=== PATIENT | female | born 1995 | race Hispanic/Latino ===

== ENCOUNTER 2021-05-29 18:56 | Emergency (ER) | payer OTHER, SELFPAY ==
[2021-05-29 19:12] VITALS: BP 101/76; PULSE 95; RESP 16; TEMP 36.6; O2SAT 100
--- NOTE | 2021-05-29 19:24 | ED.FEMALEGU ---
HPI - Female Genitourinary General Chief complaint: Urogenital-Female Stated complaint: abdominal pain/back pain Time Seen by Provider: 05/29/21 19:24 Source: patient and RN notes reviewed Mode of arrival: ambulatory Limitations: no limitations History of Present Illness HPI Narrative: 25-year-old female presents to the [facility] with complaints of urinary burning, left flank lower pain since this morning. Denies any nausea vomiting or diarrhea. Unsure of status. Related Data Allergies Allergy/AdvReac Type Severity Reaction Status Date / Time No Known Allergies Allergy Verified 05/29/21 19:23 Review of Systems Review of Systems: All systems reviewed & are unremarkable except as noted in HPI and below Constitutional: Constitutional: Reports no additional constitutional complaints, Denies chills and Denies fatigue Eyes: Eyes: Reports no additional eye complaints ENT: Reports system reviewed and no additional complaints, except as documented Cardiovascular: Cardiovascular: Reports no additional cardiovascular complaints and Denies chest pain Respiratory: Respiratory: Reports no additional respiratory complaints, Denies cough and Denies dyspnea Gastrointestinal: Gastrointestinal: Reports no additional gastrointestinal complaints, Denies abdominal pain, Denies nausea and Denies vomiting Genitourinary: Genitourinary: Reports as per HPI, Reports dysuria, Reports flank pain (left ) and Denies vaginal discharge Musculoskeletal: Musculoskeletal: Reports no additional musculoskeletal complaints Integumentary/Breasts: Skin/Breast: Reports system reviewed and no additional complaints, except as docu Neurologic: Reports system reviewed and no additional complaints, except as documented Allergic/Immunologic: Allergic/Immunologic: Reports no additional allergic/immunologic complaints PMFSH Past Medical History Medical History (Updated 05/29/21 @ 19:35 by Gia Johnson) History of PCOS Surgical History Surgical History (Updated 05/29/21 @ 19:35 by Gia Johnson) No significant past surgical history Social History Social History (Updated 05/29/21 @ 19:35 by Gia Johnson) Living arrangements: with family Gender identity (if verbalized by the patient): Female Comments At the time of my signature, I reviewed and agree with the nursing past medical, surgical, social, and family history. There is no relevant family history pertinent to the patient complaint. Exam Const: General: healthy appearing, no acute distress and alert Nutritional Appearance: well nourished Orientation/consciousness: patient oriented x3 Limitations: no limitations HENMT: Head: normal to inspection Eyes: Pupils: Equal, round and reactive pupils present Neck: Neck: normal visual inspection, no lymphadenopathy and no meningeal signs Chest: Chest palpation & inspection: normal inspection of the chest Resp: Effort & Inspection: normal respiratory effort Cardio: Rate: regular rate Rhythm: regular rhythm GI: GI Palp: Yes Soft to palpation and No Tenderness to palpation present (GI) : General: Yes CVA tenderness on the left (Lower aspect) Skin: General skin exam: normal color Rashes: no rashes Wounds: no wounds Neuro: General: patient oriented x3, moves all extremities, no meningeal signs and no focal motor deficits Speech: normal speech Gait exam (Neuro): Normal gait present Extrem: General: normal to inspection Psych: Mental Status: mental status grossly normal Affect: normal affect Attitude: cooperative Thought content: Yes Normal thought content present Judgement: Good judgement present (Psych) Course Course Emergency Course: Discharge instructions reviewed with patient, as well as provided in writing per nursing staff. The instructions also include specific and strict return/GO TO THE ER as well as f/u information. All questions have been answered, and the patient deny any further questions with discha
== END 2021-05-29 19:37 | disposition home or self-care (01) ==
PROVIDERS: Emergency Provider Nurse Practitioner; PCP Registered Nurse
DX: N30.01 Acute cystitis with hematuria (principal); E28.2 Polycystic ovarian syndrome
CPT/HCPCS: 81003; 81025; 87077; 87086; 87088; 99213; G0463

== ENCOUNTER 2021-09-14 12:43 | Emergency (ER) | payer OTHER, SELFPAY ==
[2021-09-14 12:51] VITALS: BP 134/70; PULSE 96; RESP 16; TEMP 37.2; O2SAT 99
--- NOTE | 2021-09-14 13:12 | ED.GENADULT ---
HPI - General Adult General Chief complaint: Back Pain/Injury Stated complaint: lower back pain Source: patient and RN notes reviewed History of Present Illness HPI narrative: This is a 26-year-old female that took a test Sunday 3 times and notes that are 3 times a test is positive. Patient notes that she started experiencing pelvic pain yesterday along with lower back pain. Patient is concerned of a miscarriage due to her diagnosis of PCOS. This is not patient's first and she has never experienced any pain like this before. She did note that she is seeing spots of blood this morning. The patient denies SOB, CP, palpitation, extremity numbness, lightheadedness, dizziness, constipation, diarrhea, chills, or fever. Related Data Allergies Allergy/AdvReac Type Severity Reaction Status Date / Time No Known Allergies Allergy Verified 09/14/21 12:46 Review of Systems Review of Systems: A 14 organ system Review of Systems was performed and pertinent positives included in the HPI, otherwise remaining ROS is negative. FOR[facility]LY [facility] Past Medical History Medical History History of PCOS Surgical History Surgical History No significant past surgical history Social History Social History Gender identity (if verbalized by the patient): Female Exam Narrative: GENERAL: This is a well-nourished, well-developed patient, in no apparent distress. HEAD: normocephalic, atraumatic. EYES: PERRL. Sclera clear/white. Vision is grossly intact. EARS: External ears normal, auditory canals clear and without drainage, TMs normal without perforation. Hearing grossly intact. NOSE: External nose normal with no obvious nasal discharge, nares without redness, no rhinorrhea. THROAT: Mucous membranes moist, posterior pharynx clear. NECK: Neck supple, non-tender without lymphadenopathy, masses or thyromegaly. CARDIOVASCULAR: Regular rate and rhythm without murmurs, gallops, or rubs. RESPIRATORY: Clear to auscultation. Breath sounds equal bilaterally. No wheezes, rales, or rhonchi. GASTROINTESTINAL: Abdomen soft, and tender to pelvic area, nondistended. Bowel sounds are active. No hepato-splenomegaly, or palpable masses. No guarding. SKIN: warm, intact with no suspicious lesions or rash, good texture and turgor. NEURO: awake, alert, and oriented to person, place and time. There were no obvious focal neurologic abnormalities. Steady gait EXTREMITIES: Normal range of motion. No edema. No calf tenderness. Negative Homans sign bilaterally. BACK: Nontender without deformity or crepitance. No flank tenderness. Course Course Emergency Course: Patient will transfer to [facility] for further diagnostic testing Level of Care: Express Care Visit Vital Signs Vital signs: Vital Signs Temperature 99.0 F 09/14/21 12:51 Pulse Rate 96 09/14/21 12:51 Respiratory Rate 16 09/14/21 12:51 Blood Pressure 134/70 09/14/21 12:51 Pulse Oximetry 99 09/14/21 12:51 Temperature 99.0 F 09/14/21 12:51 Pulse Rate 96 09/14/21 12:51 Respiratory Rate 16 09/14/21 12:51 Blood Pressure 134/70 09/14/21 12:51 Pulse Oximetry 99 09/14/21 12:51 Medical Decision Making Differential Diagnosis Differential Diagnosis: Miscarriage versus PID Vital Signs Vital Signs: Vital Signs Temperature 99.0 F 09/14/21 12:51 Pulse Rate 96 09/14/21 12:51 Respiratory Rate 16 09/14/21 12:51 Blood Pressure 134/70 09/14/21 12:51 Pulse Oximetry 99 09/14/21 12:51 Temperature 99.0 F 09/14/21 12:51 Pulse Rate 96 09/14/21 12:51 Respiratory Rate 16 09/14/21 12:51 Blood Pressure 134/70 09/14/21 12:51 Pulse Oximetry 99 09/14/21 12:51 Lab Data Labs: Urine Glucose Negative Refere
--- NOTE | 2021-09-14 13:18 | ER_ITS ---
This report was recreated on October 13, 2021. Original report was signed by Ananth Beck APN on September 14, 2021 at 1350. HPI - General Adult General Chief complaint: Back Pain/Injury Stated complaint: lower back pain Source: patient and RN notes reviewed History of Present Illness HPI narrative: This is a 26-year-old female that took a test Sunday 3 times and notes that are 3 times a test is positive. Patient notes that she started experiencing pelvic pain yesterday along with lower back pain. Patient is concerned of a miscarriage due to her diagnosis of PCOS. This is not patient's first and she has never experienced any pain like this before. She did note that she is seeing spots of blood this morning. The patient denies SOB, CP, palpitation, extremity numbness, lightheadedness, dizziness, constipation, diarrhea, chills, or fever. Related Data Allergies Allergy/AdvReac Type Severity Reaction Status Date / Time No Known Allergies Allergy Verified 09/14/21 12:46 Review of Systems Review of Systems: A 14 organ system Review of Systems was performed and pertinent positives included in the HPI, otherwise remaining ROS is negative. FORMERLY [facility] Past Medical History Medical History History of PCOS Surgical History Surgical History No significant past surgical history Social History Social History Gender identity (if verbalized by the patient): Female Exam Narrative: GENERAL: This is a well-nourished, well-developed patient, in no apparent distress. HEAD: normocephalic, atraumatic. EYES: PERRL. Sclera clear/white. Vision is grossly intact. EARS: External ears normal, auditory canals clear and without drainage, TMs normal without perforation. Hearing grossly intact. NOSE: External nose normal with no obvious nasal discharge, nares without redness, no rhinorrhea. THROAT: Mucous membranes moist, posterior pharynx clear. NECK: Neck supple, non-tender without lymphadenopathy, masses or thyromegaly. CARDIOVASCULAR: Regular rate and rhythm without murmurs, gallops, or rubs. RESPIRATORY: Clear to auscultation. Breath sounds equal bilaterally. No wheezes, rales, or rhonchi. GASTROINTESTINAL: Abdomen soft, and tender to pelvic area, nondistended. Bowel sounds are active. No hepato-splenomegaly, or palpable masses. No guarding. SKIN: warm, intact with no suspicious lesions or rash, good texture and turgor. NEURO: awake, alert, and oriented to person, place and time. There were no obvious focal neurologic abnormalities. Steady gait EXTREMITIES: Normal range of motion. No edema. No calf tenderness. Negative Homans sign bilaterally. BACK: Nontender without deformity or crepitance. No flank tenderness. Course Course Emergency Course: Patient will transfer to [facility] for further diagnostic testing Level of Care: Express Care Visit Vital Signs Vital signs: Vital Signs Temperature 99.0 F 09/14/21 12:51 Pulse Rate 96 09/14/21 12:51 Respiratory Rate 16 09/14/21 12:51 Blood Pressure 134/70 09/14/21 12:51 Pulse Oximetry 99 09/14/21 12:51 Temperature 99.0 F 09/14/21 12:51 Pulse Rate 96 09/14/21 12:51 Respiratory Rate 16 09/14/21 12:51 Blood Pressure 134/70 09/14/21 12:51 Pulse Oximetry 99 09/14/21 12:51 Medical Decision Making Differential Diagnosis Differential Diagnosis: Miscarriage versus PID Vital Signs
== END 2021-09-14 13:11 | disposition short-term general hospital (02) ==
PROVIDERS: Emergency Provider Nurse Practitioner
DX: O90.89 Other complications of the puerperium, not elsewhere classified (principal); R10.2 Pelvic and perineal pain; E28.2 Polycystic ovarian syndrome
CPT/HCPCS: 81003; 99212; G0463

== ENCOUNTER 2022-10-27 19:23 | Emergency (ER) | payer OTHER, SELFPAY ==
[2022-10-27 19:34] VITALS: BP 133/71; PULSE 80; RESP 12; TEMP 36.7; O2SAT 100
--- NOTE | 2022-10-27 19:38 | ED.BACK ---
HPI - Back Pain/Injury General Chief Complaint: Back Pain/Injury Stated Complaint: back pain Time Seen by Provider: 10/27/22 19:42 Source: patient and RN notes reviewed Mode of arrival: ambulatory Limitations: no limitations History of Present Illness HPI Narrative: 27-year-old female presents concern for mid back pain that radiates down the right leg. Reports symptoms started on Sunday. Reports she has tried Tylenol ibuprofen without relief. Pain worsens with sitting. She denies perianal anesthesia, loss of bowel or bladder function, weakness in the extremity, abdominal pain, fever. Reports she had a similar episode several years ago that resolved on its own. MD elicited complaint: back pain Related Data Home Medications Medication Instructions Recorded Confirmed fluconazole 150 mg tablet 150 mg PO DIRECTED 10/27/22 10/27/22 metronidazole 500 mg tablet 500 mg PO DIRECTED 10/27/22 10/27/22 Allergies Allergy/AdvReac Type Severity Reaction Status Date / Time No Known Allergies Allergy Verified 10/27/22 19:29 Review of Systems Review of Systems: CONSTITUTIONAL: Denies malaise, chills, sweats, or fever. CARDIOVASCULAR: Denies chest pain, palpitations, or edema. RESPIRATORY: Denies cough or dyspnea. GASTROINTESTINAL: Denies abdominal pain, nausea, vomiting, diarrhea, loss of bowel function GENITOURINARY: Denies dysuria, hematuria, frequency, loss of bladder function. SKIN: Denies rash or itching. MUSCULOSKELETAL: Reports low back pain that radiates down the right leg NEUROLOGIC: Denies numbness, weakness, or headache. All systems reviewed & are unremarkable except as noted in HPI and below PMFSH Past Medical History Medical History History of PCOS Surgical History Surgical History No significant past surgical history Social History Social History Living arrangements: with family Gender identity (if verbalized by the patient): Female Comments At time of signature, agree with nursing past medical, surgical, social and family history. There is no relevant family history pertinent to the presenting complaint Exam Narrative: GENERAL: Well-appearing, well-nourished, and in no acute distress. HEAD: Normocephalic, atraumatic. EYES: PERRLA and EOMI. NECK: Supple. No lymphadenopathy. CHEST: Clear to auscultation. No respiratory distress. HEART: Regular rate and rhythm. Distal pulses palpable and equal, cap refill <3 seconds ABDOMEN: Soft, nontender, nondistended, normal active bowel sounds, no palpable or pulsatile masses. No CVA tenderness MUSCULOSKELETAL: Normal range of motion and strength in all extremities; 5/5 strength with hip flexion and extension, dorsiflexion and extension, knee flexion and extension, plantar flexion and extension. Normal sensation in dermatomal distributions with sensitivity to light touch and pain. No midline back tenderness to palpation. No paraspinal tenderness. SKIN: Warm, dry, no rash. No ecchymosis, erythema, open wounds to back. NEURO: No focal deficits. Alert and oriented x3. Reflexes intact. Normal gait. PSYCH: Normal mood and affect Course Course Emergency Course: Patient is aware of diagnosis, understands and agrees to treatment plan. Anticipatory guidance given. Patient agrees to follow-up as directed and is aware of reasons to seek care at the emergency department. Portions of this record may have been created with voice recognition software Level of Care: Express Care Visit Vital Signs Vital signs: Vital Signs Temperature 98.1 F 10/27/22 19:34 Pulse Rate 80 10/27/22 19:34 Respiratory Rate 12 10/27/22 19:34 Blood Pressure 133/71 10/27/22 19:34 Pulse Oximetry 100 10/27/22 19:34 Oxygen Delivery Room Air 10/27/22 19:34 Temperature 98.1 F 10/27/22 19:34 Pulse R
== END 2022-10-27 19:56 | disposition home or self-care (01) ==
PROVIDERS: Emergency Provider Nurse Practitioner; PCP Registered Nurse
DX: M54.50 Low back pain, unspecified (principal)
CPT/HCPCS: 99213; G0463